=== PATIENT | male | born 1975 | race African-American/Black ===

== ENCOUNTER 2022-08-11 15:28 | Outpatient (RCR) | payer OTHER | END 2022-08-15 | disposition home or self-care (01) | LOC: COL.CR | DX: Z48.812 Encounter for surgical aftercare following surgery on the circulatory system (principal); Z98.61 Coronary angioplasty status; I21.9 Acute myocardial infarction, unspecified ==

== ENCOUNTER 2022-09-10 14:09 | Outpatient (RCR) | payer OTHER | END 2022-09-15 | disposition home or self-care (01) | LOC: COL.CR | DX: Z48.812 Encounter for surgical aftercare following surgery on the circulatory system (principal); Z98.61 Coronary angioplasty status; I25.2 Old myocardial infarction ==